=== PATIENT | female | born 1940 | race Caucasian/White ===

== ENCOUNTER 2023-06-10 14:58 | Emergency (ER) | payer OTHER ==
[~2023-06-10] VITALS: Ht 160 cm; Wt 68.9 kg
[2023-06-10] MEDS ORDERED: AMLODIPINE-OLM1 EACH (15:31)
[2023-06-10] MEDS ORDERED: CRESTOR5 MG (15:31)
[2023-06-10] MEDS ORDERED: TOPROL XL50 M1 (15:32)
[2023-06-10] MEDS ORDERED: DIOVAN160 M1 (15:32)
== END 2023-06-10 22:04 | disposition home or self-care (01) ==
LOC: ER 14:58
PROVIDERS: Nurse Practitioner Family
DX: R42 Dizziness and giddiness (principal); I10 Essential (primary) hypertension; E78.49 Other hyperlipidemia
CPT/HCPCS: 36415; 70450; 93005; 96365; 99284; J2405